=== PATIENT | male | born 1945 | race Caucasian/White ===

== ENCOUNTER 2021-03-07 06:05 | Day surgery (SDC) | payer MEDICARE, OTHER ==
[2021-03-05 10:16] LABS: COVID AG,FIA SOURCE NASOPHARYNGEAL
[~2021-03-07] VITALS: Ht 167.6 cm; Wt 100.0 kg
[2021-03-07] MEDS ORDERED: LIDOCAINE 4% 50 ML SOLUTION TP ONE (06:06)
[2021-03-07] MEDS ORDERED: BENZOCAINE 20% 50 MCG/SPRAY 57 GM TP ONE (06:06)
[2021-03-07] MEDS ORDERED: LIDOCAINE 2% 30 ML JELLY TP ONE (06:06)
[2021-03-07] MEDS ORDERED: SODIUM CHLORIDE 0.9% 1,000 ML IV ONE (06:30)
[2021-03-07] MEDS ORDERED: SODIUM CHLORIDE 0.9% 1,000 ML ONE (06:35)
[2021-03-07 07:30] LABS: GLUCOMETER DEV NAME(LOC) SDS.; GLUCOSE,POINT OF CARE 178 MG/DL (70-110)
[2021-03-07] MEDS ORDERED: FentaNYL CITRATE PF 100 MCG/2 ML VIAL ONE (07:48)
[2021-03-07] MEDS ORDERED: MIDAZOLAM HCL 5 MG/ML VIAL ONE (07:48)
[2021-03-07] MEDS ORDERED: CHOL-35 PO (07:50)
[2021-03-07] MEDS ORDERED: GLIP5 PO (07:50)
[2021-03-07] MEDS ORDERED: OMEP20 PO (07:50)
[2021-03-07] MEDS ORDERED: AZEL137S8 NASAL (07:50)
[2021-03-07] MEDS ORDERED: ATEN-73 PO (07:50)
[2021-03-07] MEDS ORDERED: ALBU8HFA IH (07:50)
[2021-03-07] MEDS ORDERED: ATOR40TA28 PO (07:50)
[2021-03-07] MEDS ORDERED: FAMO20 PO (07:50)
[2021-03-07] MEDS ORDERED: LISI-894 PO (07:50)
[2021-03-07] MEDS ORDERED: FLUT1BLS IH (07:50)
[2021-03-07] MEDS ORDERED: METF-911 PO (07:50)
[2021-03-07] MEDS ORDERED: ASPI-1444 PO (07:50)
[2021-03-07] MEDS ORDERED: MOME17N NASAL (07:50)
[2021-03-07] MEDS ORDERED: MethylPREDNISolone SOD SUCC 125 MG/2 ML VIAL IVP ONE (09:00)
[2021-03-07] MEDS ORDERED: MethylPREDNISolone SOD SUCC 125 MG/2 ML VIAL ONE (09:02)
[2021-03-07] MEDS ORDERED: OXYGEN THERAPY IH SCH (20:00)
== END 2021-03-07 11:30 | disposition home or self-care (01) ==
LOC: SURGERY 06:05
PROVIDERS: ATTEND Internal Medicine Critical Care Medicine
DX: J38.4 Edema of larynx (principal); B37.0 Candidal stomatitis; I10 Essential (primary) hypertension; E78.5 Hyperlipidemia, unspecified; J44.9 Chronic obstructive pulmonary disease, unspecified; I25.2 Old myocardial infarction; E11.9 Type 2 diabetes mellitus without complications; G47.33 Obstructive sleep apnea (adult) (pediatric); Z79.899 Other long term (current) drug therapy; Z98.890 Other specified postprocedural states; Z79.4 Long term (current) use of insulin
CPT/HCPCS: 31623; 31624; 71045; 82962; 87015; 87070; 87101; 87205; 87206; 87220; 87426; 88108; 88184; 88185; 88312; 93005; C9803; J2250; J2930; J3010; J7030; Z7610

== ENCOUNTER 2023-10-27 07:01 | Day surgery (SDC) | payer MEDICARE ==
[~2023-10-27] VITALS: Ht 165.1 cm; Wt 109.1 kg
[~2023-10-27 07:01] MED LIST: ALBU18HF12 IH; ASPI-1444 PO; ATEN-73 PO; ATOR40TA28 PO; AZEL137S8 NASAL; CHOL25TA4 PO; FAMO20 PO; FLUT1BLS IH; GLIP5TAB16 PO; LISI-894 PO; METF-81 PO; MOME17N NASAL; OMEP20 PO; SODIUM CHLORIDE 0.9% 1,000 ML ONE
[2023-10-27] MEDS ORDERED: MIDAZOLAM HCL 2 MG/2 ML VIAL ONE (07:52)
[2023-10-27] MEDS ORDERED: FentaNYL CITRATE PF 100 MCG/2 ML VIAL ONE (07:52)
[2023-10-27] MEDS: SODIUM CHLORIDE 0.9% 1,000 ML IV ONE (08:08)
[2023-10-27 08:21] LABS: GLUCOMETER DEV NAME(LOC) SDS.; GLUCOSE,POINT OF CARE 181 MG/DL (70-110)
[2023-10-27 09:36] VITALS: PULSE 72; RESP 18; O2SAT 98
[2023-10-27] MEDS ORDERED: MethylPREDNISolone SOD SUCC 125 MG/2 ML VIAL ONE (10:15)
[2023-10-27] MEDS: MethylPREDNISolone SOD SUCC 125 MG/2 ML VIAL IVP ONE (10:20)
[2023-10-27] MEDS ORDERED: LIDOCAINE 4% 50 ML SOLUTION ONE (12:00)
[2023-10-27] MEDS ORDERED: BENZOCAINE 20% 50 MCG/SPRAY 57 GM ONE (12:00)
[2023-10-27] MEDS ORDERED: ALBUTEROL SULFATE 2.5 MG/0.5 ML NEB SOLUTION NEB ONE (12:00)
[2023-10-27] MEDS ORDERED: LIDOCAINE 2% 11 ML JELLY ONE (12:00)
== END 2023-10-27 12:40 | disposition home or self-care (01) ==
LOC: SURGERY 07:01
PROVIDERS: ATTEND Internal Medicine Critical Care Medicine
DX: R05.3 Chronic cough (principal); R06.2 Wheezing; R04.2 Hemoptysis; J98.09 Other diseases of bronchus, not elsewhere classified; J84.10 Pulmonary fibrosis, unspecified; J98.8 Other specified respiratory disorders; E11.9 Type 2 diabetes mellitus without complications; I11.9 Hypertensive heart disease without heart failure; J98.4 Other disorders of lung; I70.0 Atherosclerosis of aorta; M47.814 Spondylosis without myelopathy or radiculopathy, thoracic region; M19.90 Unspecified osteoarthritis, unspecified site; E78.00 Pure hypercholesterolemia, unspecified; J44.9 Chronic obstructive pulmonary disease, unspecified; G47.30 Sleep apnea, unspecified; Z85.21 Personal history of malignant neoplasm of larynx; Z87.891 Personal history of nicotine dependence; Z90.49 Acquired absence of other specified parts of digestive tract; Z98.890 Other specified postprocedural states; Z79.4 Long term (current) use of insulin; Z79.899 Other long term (current) drug therapy
CPT/HCPCS: 93005; 82962; 87206; 87101; 87220; 87070; 31623; 31624; 94640; 71045; 87015; J3010; J2250; J2919; Q9967; J7030; 88108; J7613; Z7610